=== PATIENT | female | born 1960 | race Caucasian/White ===

== ENCOUNTER → 2019-05-03 | Outpatient (CLI) | payer OTHER ==
[2019-05-03 08:11] LABS: POTASSIUM 3.8 mmol/L (3.5-5.1)
== END ==
LOC: M.LAB 04:59
PROVIDERS: Anesthesiology
DX: E11.9 Type 2 diabetes mellitus without complications (principal); E87.6 Hypokalemia

== ENCOUNTER → 2020-08-17 | Outpatient (CLI) | payer OTHER | LOC: M.RAD 15:56 | PROVIDERS: ATTEND Internal Medicine | DX: M19.071 Primary osteoarthritis, right ankle and foot (principal) ==